=== PATIENT | female | born 1955 | race Caucasian/White ===

== ENCOUNTER 2022-05-05 17:10 | Emergency (ER) | payer BC ==
[2022-05-05] MEDS ORDERED: Sodium Chloride 0.9% 1,000 ML IV SCH (17:45)
== END 2022-05-05 19:00 | disposition home or self-care (01) ==
LOC: JD.ED 17:10
DX: I95.89 Other hypotension (principal); F10.10 Alcohol abuse, uncomplicated; F17.210 Nicotine dependence, cigarettes, uncomplicated; Z88.6 Allergy status to analgesic agent; Z86.16 Personal history of COVID-19
CPT/HCPCS: 36415; 70450; 71045; 72125; 80053; 80306; 80307; 81003; 85007; 85027; 93005; 96360; 96361; 99285; J7030

== ENCOUNTER 2024-10-19 07:00 | Day surgery (SDC) | payer MEDICARE, OTHER ==
[~2024-10-19 07:00] MED LIST: Dexamethasone 4 MG/ML 5 ML MDV ONE; Ketorolac 30 MG/ML SDV ONE; Lidocaine 2% 5 ML SDV ONE; Midazolam 1 MG/ML 2 ML SDV ONE; Ondansetron 4 MG/2 ML SDV ONE; Propofol 200 MG/20 ML SDV ONE; Ropivacaine 0.5% 5 MG/ML 30 ML SDV ONE; Sodium Chloride 0.9% 10 ML Syringe FLUSH PRN; Sodium Chloride 0.9% 10 ML Syringe FLUSH SCH; ceFAZolin 2 GM Vial ONE; dexmedeTOMIDine HCl 200 MCG/2 ML SDV ONE; fentaNYL 100 MCG/2 ML SDV ONE
[2024-10-19] MEDS: Lactated Ringers 1,000 ML IV SCH (07:20)
[2024-10-19] MEDS: Famotidine 20 MG/2 ML SDV IVPUSH ONE (07:31)
[2024-10-19] MEDS: Acetaminophen 325 MG Tab PO ONE (07:31)
[2024-10-19] MEDS ORDERED: Bupivacaine 0.25% 10 ML SDV ONE (07:32)
[2024-10-19] MEDS ORDERED: ePHEDrine 50 MG/ML SDV ONE (08:01)
[2024-10-19] MEDS: Bupivacaine 0.5% 10 ML SDV ONE ×2 (08:03→10:36)
[2024-10-19] MEDS: Lidocaine 1% 10 ML MDV ONE ×2 (08:03→10:36)
[2024-10-19] MEDS ORDERED: Glycopyrrolate 0.2 MG/ML 2 ML SDV ONE (08:05)
[2024-10-19] MEDS ORDERED: Phenylephrine 1% 10 MG/ML SDV ONE (08:20)
[2024-10-19] MEDS ORDERED: HYDROmorphone 0.5 MG/0.5 ML Syringe IVPUSH PRN (08:36)
[2024-10-19] MEDS ORDERED: fentaNYL 100 MCG/2 ML SDV IVPUSH PRN (08:36)
[2024-10-19] MEDS ORDERED: Ondansetron 4 MG/2 ML SDV IVPUSH PRN (08:36)
[2024-10-19] MEDS ORDERED: Lactated Ringers 1,000 ML ONE (09:26)
[2024-10-19] MEDS ORDERED: Bupivacaine 0.5% 10 ML SDV ONE (10:32)
[2024-10-19] MEDS ORDERED: Lidocaine 1% 10 ML MDV ONE (10:32)
[2024-10-19] MEDS ORDERED: Acetaminophen/oxyCODONE 325-5 MG Tab PO PRN (11:47)
== END 2024-10-19 14:10 | disposition home or self-care (01) ==
LOC: JD.SDS 07:00
PROVIDERS: ATTEND Podiatrist Foot & Ankle Surgery
DX: S93.324A Dislocation of tarsometatarsal joint of right foot, initial encounter (principal); M19.071 Primary osteoarthritis, right ankle and foot; M24.674 Ankylosis, right foot; I10 Essential (primary) hypertension; F17.210 Nicotine dependence, cigarettes, uncomplicated; Z79.899 Other long term (current) drug therapy
CPT/HCPCS: 28615; 28730; 76000; A9270; J0665; J0690; J1100; J1596; J1885; J2003; J2250; J2371; J2405; J2704; J3010; J7120; C1713; J2795; J3490

== ENCOUNTER 2024-10-24 09:33 | Emergency (ER) | payer MEDICARE, OTHER ==
[2024-10-24] MEDS: Ondansetron 4 MG/2 ML SDV IVPUSH ONE ×2 (09:57→09:58)
[2024-10-24] MEDS: Sodium Chloride 0.9% 1,500 ML IV ONE (09:58)
[2024-10-24 10:35] LABS: BASOPHILS PERCENT AUTO 0.2 % (0.0-1.0); EOSINOPHILS ABSOLUTE AUTO 0.3 K/mm3 (0.0-0.4); EOSINOPHILS PERCENT AUTO 1.9 % (0.0-6.0); HEMATOCRIT 39.6 % (37.0-47.0); HEMOGLOBIN 13.2 gm/dl (12.0-16.0); IMMATURE GRAN ABSOLUTE AUTO 0.06 K/mm3 (0.00-0.05); IMMATURE GRAN PERCENT AUTO 0.4 % (0.0-0.4); LYMPHOCYTES ABSOLUTE AUTO 1.5 K/mm3 (1.0-4.8); LYMPHOCYTES PERCENT AUTO 9.3 % (24.0-44.0); MEAN CORPUSCULAR HEMOGLOBIN 30.3 pg (28.0-32.0); MEAN CORPUSCULAR HGB CONC 33.3 g/dl (32.0-36.0); MEAN CORPUSCULAR VOLUME 90.8 fl (83.0-99.0); MEAN PLATELET VOLUME 9.5 fl (9.4-12.3); MONOCYTES ABSOLUTE AUTO 1.2 K/mm3 (0.0-0.8); MONOCYTES PERCENT AUTO 7.4 % (0.0-8.0); NEUTROPHILS ABSOLUTE AUTO 13.1 K/mm3 (1.8-7.7); NEUTROPHILS PERCENT AUTO 80.8 % (41.0-71.0); PLATELET COUNT,PLT 248 K/mm3 (150-400); RED BLOOD CELL COUNT 4.36 M/mm3 (4.10-5.30); WHITE BLOOD CELL COUNT,WBC 16.15 K/mm3 (3.9-11.3)
[2024-10-24 10:50] LABS: BARBITURATE SCREEN,URINE NEGATIVE (CUTOFF=200); BENZODIAZEPINES SCREEN,URINE PRESUMPTIVE POSITIVE (CUTOFF=150); BUPRENORPHINE SCREEN,URINE NEGATIVE (CUTOFF=10); METHADONE SCREEN, URINE NEGATIVE (CUTOFF=200); METHAMPHETAMINES SCREEN, URINE NEGATIVE (CUTOFF=500); OXYCODONE SCREEN,URINE NEGATIVE (CUT0FF=100); THC SCREEN,URINE 20 NG/ML NEGATIVE (CUTOFF=50)
[2024-10-24 10:52] LABS: AMPHETAMINES SCREEN, URINE NEGATIVE (CUTOFF=500)
[2024-10-24 11:00] LABS: A/G RATIO 1.1 (1-2); ALBUMIN 3.3 g/dl (3.4-5.0); BILIRUBIN TOTAL 0.6 mg/dL (0.2-1.0); BUN/CREATININE RATIO 14.5 (14-18); CREATININE 1.1 mg/dL (0.55-1.02); EST CRCL DRUG DOSING (CG) 48.26 mL/min; MAGNESIUM 1.2 mg/dL (1.8-2.4); PROTEIN TOTAL,TP 6.4 g/dl (6.4-8.2)
[2024-10-24] MEDS: Iopamidol 612 MG/ML 100 ML Bottle IVPUSH ONE (11:27)
[2024-10-24] MEDS: Sodium Chloride 0.9% 10 ML Syringe FLUSH ONE (11:27)
[2024-10-24] MEDS: Potassium Chloride 10 MEQ in Premix Bag 1 BAG IV SCH (11:30)
[2024-10-24] MEDS: VANCOmycin 125 MG Cap PO STA ×2 (15:10→15:20)
== END 2024-10-24 15:30 | disposition home or self-care (01) ==
LOC: JD.ED 09:33
DX: A04.72 Enterocolitis due to Clostridium difficile, not specified as recurrent (principal); I10 Essential (primary) hypertension; F17.210 Nicotine dependence, cigarettes, uncomplicated; Z86.16 Personal history of COVID-19; Z88.5 Allergy status to narcotic agent; Z79.51 Long term (current) use of inhaled steroids; Z79.899 Other long term (current) drug therapy
CPT/HCPCS: 36415; 74177; 80053; 80306; 82550; 83605; 83690; 83735; 85025; 87045; 87046; 87324; 87428; 87493; 87899; 96361; 96365; 96366; 96375; 99284; A9270; C1758; J2405; J3480; J7030; Q9967

== ENCOUNTER 2025-04-26 07:37 | Day surgery (SDC) | payer MEDICARE, OTHER ==
[~2025-04-26 07:37] MED LIST changes: -Dexamethasone 4 MG/ML 5 ML MDV ONE; -Ketorolac 30 MG/ML SDV ONE; -Lidocaine 2% 5 ML SDV ONE; -Midazolam 1 MG/ML 2 ML SDV ONE; -Ondansetron 4 MG/2 ML SDV ONE; -Propofol 200 MG/20 ML SDV ONE; -Ropivacaine 0.5% 5 MG/ML 30 ML SDV ONE; -ceFAZolin 2 GM Vial ONE; -dexmedeTOMIDine HCl 200 MCG/2 ML SDV ONE; -fentaNYL 100 MCG/2 ML SDV ONE
[2025-04-26] MEDS: Lactated Ringers 1,000 ML IV SCH (07:55)
[2025-04-26] MEDS ORDERED: Ondansetron 4 MG/2 ML SDV ONE (08:14)
[2025-04-26] MEDS ORDERED: Lidocaine 1% 4 ML ONE (08:14)
[2025-04-26] MEDS ORDERED: Propofol 200 MG/20 ML SDV ONE (08:14)
[2025-04-26] MEDS ORDERED: Dexamethasone 4 MG/ML 5 ML MDV ONE (08:14)
[2025-04-26] MEDS ORDERED: Ketamine HCL/NACL, ISO-OSM 50 MG/5 ML Syringe ONE (08:14)
[2025-04-26] MEDS ORDERED: fentaNYL 100 MCG/2 ML SDV ONE ×2 (08:15→11:10)
[2025-04-26] MEDS ORDERED: Acetaminophen Soln 650 MG/20.3 ML UD Cup PO ONE (09:02)
[2025-04-26] MEDS ORDERED: Ondansetron 4 MG/2 ML SDV IVPUSH PRN (09:02)
[2025-04-26] MEDS ORDERED: fentaNYL 100 MCG/2 ML SDV IVPUSH PRN (09:02)
[2025-04-26] MEDS ORDERED: Naloxone 0.4 MG/ML SDV IVPUSH PRN (09:02)
[2025-04-26] MEDS ORDERED: ePHEDrine 50 MG/ML SDV ONE (09:28)
[2025-04-26] MEDS ORDERED: Phenylephrine 1% 10 MG/ML SDV ONE (09:40)
[2025-04-26] MEDS ORDERED: Lactated Ringers 1,000 ML IV ONE (11:15)
[2025-04-26] MEDS: Acetaminophen/oxyCODONE 325-5 MG Tab PO PRN (12:51)
== END 2025-04-26 13:35 | disposition home or self-care (01) ==
LOC: JD.SDS 07:37
PROVIDERS: ATTEND Podiatrist Foot & Ankle Surgery
DX: T84.84XA Pain due to internal orthopedic prosthetic devices, implants and grafts, initial encounter (principal); M20.41 Other hammer toe(s) (acquired), right foot; E78.00 Pure hypercholesterolemia, unspecified; I10 Essential (primary) hypertension; E66.9 Obesity, unspecified; E78.5 Hyperlipidemia, unspecified; F17.210 Nicotine dependence, cigarettes, uncomplicated; Z88.5 Allergy status to narcotic agent; Z68.33 Body mass index [BMI] 33.0-33.9, adult; Z79.899 Other long term (current) drug therapy
CPT/HCPCS: 20680; 28285; 76000; A9270; C1713; J0665; J1100; J2003; J2371; J2405; J2704; J3010; J7120; J3490